=== PATIENT | male | born 1955 | race Caucasian/White ===

== ENCOUNTER 2024-06-28 19:05 | Emergency (ER) | payer MEDICARE, OTHER, SELFPAY ==
[2024-06-28 19:08] VITALS: BP 144/80
[2024-06-28 19:26] LABS: % Basophils 0.6 % (0-2); % Eosinophils 2.3 % (0-6); % Immature Granulocytes 0.1 % (0-0.5); % Lymphocytes 36.5 % (20.5-51.1); % Neutrophils 54.5 % (42.2-75.2); Absolute Basophils 0.1 10^3/uL (0-0.2); Absolute Eosinophils 0.2 10^3/uL (0-0.7); Absolute Lymphocytes 2.9 10^3/uL (1.2-3.4); Absolute Monocytes 0.5 10^3/uL (0.1-0.6); Absolute Neutrophils 4.3 10^3/uL (1.4-6.5); Hematocrit 44.9 % (39.0-52.0); Hemoglobin 15.6 g/dL (13.0-18.0); Mean Corp Hgb Conc. 34.7 g/dL (33.0-37.0); Mean Corpuscular Hgb 30.8 pg (27.0-31.0); Mean Corpuscular Volume 88.6 fL (80.0-94.0); Mean Platelet Volume 9.7 fL (7.4-10.4); Nucleated Red Blood Cells % 0 % (-); Platelet Count 235 10^3/uL (130-400); Red Blood Cell Count 5.07 10^6/uL (4.70-6.10); Red Cell Dist. Width 12.1 % (11.5-14.5); White Blood Cell Count 7.9 10^3/uL (4.8-10.8)
[2024-06-28 19:45] LABS: ALT (SGPT) 20 U/L (0-50); AST (SGOT) 22 U/L (17-59); Albumin 3.8 g/dl (3.5-5.0); Alkaline Phosphatase 90 U/L (38-126); Blood Urea Nitrogen 21 mg/dl (9-20); Calcium 9.2 mg/dl (8.4-10.2); Carbon Dioxide 27 mmol/L (22-30); Glucose 125 mg/dl (70-99); Total Bilirubin 0.9 mg/dl (0.2-1.3); Total Protein 6.7 g/dl (6.3-8.2); eGFR > 60.00
[2024-06-28 19:51] LABS: NT-proBNP 64.1 pg/ml; Troponin I < 0.012 ng/ml
[2024-06-28 19:53] LABS: Chloride 104 mmol/L (98-107); Sodium 140 mmol/L (135-145)
[2024-06-28 23:39] VITALS: BP 125/69
[2024-06-28 23:45] VITALS: BMI 29.0
[2024-06-29] VITALS: BP 124/76
[2024-06-29 00:06] VITALS: BP 132/88
[2024-06-29 00:07] VITALS: BP 129/69
[2024-06-29 00:08] VITALS: BP 124/76; BP 129/69; BP 132/88; PULSE 65; PULSE 68; PULSE 70
[2024-06-29] MEDS: ANTIVERT 25 MG PO (00:11)
--- NOTE | 2024-06-29 00:51 | ED.GENMED ---
History of Present Illness
General
Chief Complaint: Chest Pain
Source: patient and spouse
Exam Limitations: none
Time Seen by Provider: 06/28/24 23:28
Nursing documentation reviewed up to this point in time: agreed with
History of Present Illness
History of Present Illness:
This is a 68-year-old gentleman who has history of hyperlipidemia, chronic low back pain related to herniated lumbar disc maintained on atorvastatin as well as nightly Percocet.
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
He admits to some pinpoint local left lower chest pain that has been persistent, nonradiating without definitive aggravating nor relieving factors. He also complains of some dizziness which he describes as feeling mildly off balance without a sense
of spinning. He admits to a sense of mild head pressure but denies sinus pressure nor pain, denies headache. He denies difficulty with his speech.
He denies weakness or numbness but admits to feeling mildly off balance without difficulty ambulating, no fall, no lightheadedness nor feeling that he is going to pass out.
He notes prior history of vertigo as well as prior history of 'passing out' and current symptoms feel different from these previous episodes.
He does note mild intermittent palpitations but denies sense of his heart beating rapidly.
Symptoms have persisted since 2:30 PM.
Past History
Past History
ED Past Medical History: Hypercholesterolemia and Other (Chronic low back pain/herniated lumbar disc; prior history of vasovagal syncope, vertigo)
ED Past Surgical History: Orthopedic (Bilateral hip replacement, bilateral knee arthroscopy) and Other (Hernia)
Social History
Tobacco: Non-smoker
Alcohol: Occasional
Drug: None
Personal:
Living: with family
Employment: Employed
Family History
Family History: Other (Noncontributory)
Phy Exam
Physical Exam
Physical Exam:
GENERAL: 68-year-old gentleman appears his stated age, awake and alert, pleasant, appears in no acute distress. is accompanying.
EYE: pupils equal and reactive. Mild right lateral gaze nystagmus otherwise extraocular muscles intact. Negative test of skew. Head impulse negative. Anicteric
NECK: Supple, nontender, no meningismus, no significant adenopathy.
ENT: posterior pharynx is clear, oral mucosa is moist. TM clear b/l, nares patent.
CARDIAC: Regular rate and rhythm. no murmur.
LUNGS: Clear breath sounds bilaterally, no acute respiratory distress, no wheezes/rales/rhonchi
ABDOMEN: Soft, nondistended, without focal tenderness, normoactive BS.
NEUROLOGICAL: Alert and oriented x3, no focal neuro deficits. Motor strength 5/5 bilaterally. Gross sensation is intact.
SKIN: Warm and dry, normal color, skin intact. No rash.
MUSCULOSKELETAL: No C/C/E. peripheral pulses are full and equal b/l. No palpable tenderness.
PSYCH: Normal and appropriate interaction.
Scores
Heart Score for Chest Pain Patients
STEMI patient?: No
History: Slightly or Non-Suspicious
ECG: Normal
Age: >/= 65 years
Risk Factors: 1 or 2 Risk Factors
Troponin: </= Normal Limit
Heart Score for Chest Pain Patients: 3
Heart Score Risk: 2.5% MACE over next 6 weeks
Course
Orders/Labs/Results
Orders:
Orders
06/28/24 19:06
Electrocardiogram (*1) Urgent
Reason for Study: Other
Other Reason for Exam: Respiratory Distress
Cardiac Monitoring- Treatment ONCE
EKG- Treatment ONCE
IV Insert/Care/Rem.- Treatment PRN
CR Chest - 2 Views Urgent
Comment:
Reason For Exam: respiratory distress
O2 Therapy [RESP] Urgent
Titrate/Wean O2 to maintain O2 sat greater than (%): 93
Special Instructions: TO MAINTAIN CONTINUOUS O2 SATS >/= 93%
Pulse Ox/cont/shift [RESP] Urgent
Quantity: 1
Special Instructions: continuous pulse ox
06/28/24 19:17
Complete Blood Count/With Diff Urgent
Comprehensive Metabolic Panel Urgent
NT-proBNP Urgent
Troponin I Urgent
06/29/24 00:02
Orthostatic VS- Treatment ONCE
Meclizine [Antivert] 25 mg PO NOW STA
Abnormal Lab Results
06/28/24
19:17
BUN 21 H mg/dl
(9-20)
Glucose 125 H mg/dl
(70-99)
06/28/24 19:17
06/28/24 19:17
Vital Signs
Initial and Last Documented VS:
Initial Vital Signs
Temp Pulse Resp BP Pulse Ox
97.8 F 63 16 144/80 97
06/28/24 19:08 06/28/24 19:08 06/28/24 19:08 06/28/24 19:08 06/28/24 19:08
Last Documented Vital Signs
Temp Pulse Resp BP Pulse Ox
97.8 F 70 16 121/85 96
06/28/24 19:08 06/29/24 01:24 06/29/24 01:24 06/29/24 01:24 06/29/24 00:07
MDM/Problems Addressed
Differential Diagnosis Includes:
Concern for vertigo, arrhythmia, ACS, musculoskeletal pain, GERD. No history of thromboembolism nor risk factors for such. Central vertigo, TIA/CVA much less likely.
EKG shows normal sinus rhythm with unifocal PACs otherwise unremarkable.
Chest x-ray is unremarkable, clear lung conteh.
Labs overall reassuring, within normal limits including negative troponin. With ongoing chest discomfort since 230, unremarkable EKG and negative troponin, ACS is unlikely.
Exam notable for right lateral gaze nystagmus and symptoms are somewhat reproducible with rapid rotation of the head suggesting an element of vertigo thus will trial dose of Antivert.
Patient has prior history of syncope. No evidence of arrhythmia on monitor.
Concern for potential orthostasis however admits that symptoms do not seem to be worsened with standing. Will check orthostatic vital signs for completeness sake.
*Radiology
Radiology exam reviewed: radiology read reviewed (Chest x-ray is unremarkable)
*Pulse Oximetry
Patient hypoxic: no
*EKG
Interpreted by ED Provider?: Yes
Comparison EKG: no changes (Unchanged from previous May 2021)
Rate: normal
Rhythm: sinus and PAC's
[place]: normal axis
Interval: normal interval
QRS Pattern: normal QRS
Ischemia: no ischemia
*[employer] Teacher Interpretation
Rate: normal
Interpretation: normal
Rhythm: sinus and PAC's
*Critical Care Note
Total Time (30-74mins, 75-104mins- exclusive of procedures): Not Applicable
Update Note
Update Note:
02:30
After 1 dose of meclizine, patient reports complete relief of dizziness, foggy sensation, no further chest discomfort. Ambulatory with steady unaided gait.
Will discharge to home with prescription for meclizine to be taken 4 times daily as needed for dizziness.
Discussed importance of staying well-hydrated over the next several days.
Due to complaints of chest pain, history of hyperlipidemia will refer to our chest pain hotline.
Recommend prompt follow-up with PCP for recheck as well.
Return precautions discussed.
ED Attending Note
-
Portions of this chart may have been created with voice recognition software.� Occasional wrong word or��sound alike� substitutions may have occurred due to the inherent limitations of voice recognition software.
Discharge Plan
Departure
Patient Disposition: Home (Routine Discharge)
Date of Disposition: 06/29/24
Time of Disposition: 02:31
Patient with high blood pressure during this ER visit?: No
Condition: Good
Discharge Problem:
acute vertigo, Nonspecific chest pain
Instructions: Vertigo (a type of dizziness), Chest Pain DCA Follow Up
Prescriptions:
New
meclizine 25 mg tablet
25 mg PO QID PRN (Reason: dizziness, nausea) Qty: 20 0RF
Referrals:
Srikanth Sr MD [Family Provider] - Call in 1-3 days for appt
Interventions
Interventions:
*Risk Screen - Suicide Last Done: 06/28/24 19:08
*General Assessment Last Done: 06/29/24 02:29
*Neglect/Abuse Screening Last Done: 06/28/24 19:08
*ED- Fall Risk Assessment Last Done: 06/29/24 02:29
*ED COVID-19 Vaccine History Last Done: 06/29/24 02:29
ED- Cardiac Assessment Last Done: 06/29/24 00:25
Discharge Date and Time
Print Language: [place]
[2024-06-29 01:24] VITALS: BP 121/85
[2024-06-29 02:00] VITALS: BP 120/65
== END 2024-06-29 02:50 | disposition home or self-care (01) ==
LOC: EMR 19:05
PROVIDERS: Emergency Medicine; EMERGENCY PHYSICIAN Emergency Medicine; FAMILY PHYSICIAN Family Medicine
DX: R42 Dizziness and giddiness (principal); R07.89 Other chest pain; E78.00 Pure hypercholesterolemia, unspecified; G89.29 Other chronic pain; M54.50 Low back pain, unspecified; Z96.643 Presence of artificial hip joint, bilateral
CPT/HCPCS: 99283; 71046; 80053; 83880; 84484; 85025; 93005

== ENCOUNTER → 2024-07-24 14:17 | Outpatient (REF) | payer MEDICARE, OTHER, SELFPAY | LOC: RCS 14:17 | PROVIDERS: ATTENDING PHYSICIAN Internal Medicine Cardiovascular Disease; FAMILY PHYSICIAN Family Medicine | DX: R07.89 Other chest pain (principal); I49.9 Cardiac arrhythmia, unspecified | CPT/HCPCS: 93017; 93350 ==